=== PATIENT | female | born 1975 ===

== ENCOUNTER 2018-04-08 05:51 | Day surgery (SDC) | payer BC ==
[~2018-04-08] VITALS: Ht 160 cm; Wt 68.9 kg
[2018-04-08] VITALS (12 sets, daily range): BP systolic 95–132; BP diastolic 52–80
[2018-04-08] MEDS ORDERED: PRENATAL 19 TA1 EAC1 PO (06:33)
[2018-04-08] MEDS ORDERED: VYVANSE30 MG ORAL (06:33)
[2018-04-08] MEDS ORDERED: CYMBALTA60 MG ORAL (06:33)
[2018-04-08] MEDS ORDERED: SYNTHROID137 MCG ORAL (06:33)
[2018-04-08] MEDS ORDERED: cefOXitin Sod 2 GM in D5W 110 ML IVPB ONE (07:00)
[2018-04-08] MEDS ORDERED: cefOXitin 1gm Inj ONE (07:06)
[2018-04-08] MEDS ORDERED: Succinylcholine 20mg/ml 10ml vial ONE (07:07)
[2018-04-08] MEDS ORDERED: Zemuron 50mg/5ml Inj IV ONE (07:07)
[2018-04-08] MEDS ORDERED: Ketorolac 30mg Inj ONE (07:08)
[2018-04-08] MEDS ORDERED: Midazolam 2mg/2ml Inj ONE (07:08)
[2018-04-08] MEDS ORDERED: Propofol 200mg/20ml IV ONE ×2 (07:08→08:08)
[2018-04-08] MEDS ORDERED: fentaNYL 100 mcg/2 mL IV ONE (07:08)
[2018-04-08] MEDS ORDERED: Lidocaine 1% MPF 10mg/ml 5ml ONE (07:08)
[2018-04-08] MEDS ORDERED: Ropivacaine 5mg/ml Vial 30ml INJ ONE (07:26)
[2018-04-08] MEDS ORDERED: ProvayBlue 5mg/ml 10ml amp INJ ONE (07:30)
[2018-04-08] MEDS ORDERED: LR 1000ml ONE (07:30)
[2018-04-08] MEDS ORDERED: NS Irrig 1000ml ONE (07:30)
[2018-04-08] MEDS ORDERED: Neostigmine 1mg/ml 10ml Inj ONE (07:30)
[2018-04-08] MEDS ORDERED: Sterile Water For Irrig 2000ml IRRIG ONE (07:30)
[2018-04-08] MEDS ORDERED: NS Irrig 2000ml IRRIG ONE (07:30)
--- NOTE | 2018-04-08 07:42 | Anethesia Preoperative Eval ---
Anesthesia Pre-op PMH/ROS General Date of Evaluation: Apr 08, 2018 Time of Evaluation: 07:41 Anesthesiologist: Mandeep ASA Score: ASA 2 Mallampati Score Class I : Soft palate, uvula, fauces, pillars visible Class II: Soft palate, uvula, fauces visible Class III: Soft palate, base of uvula visible Class IV: Only hard plate visible Mallampati Classification: Class II Surgeon: Corie Diagnosis: Abdominal pain Surgical Procedure: Laparoscopy D&C Hysteroscopy Anesthesia History: none Family History: no anesthesia problems Allergies: Coded Allergies: No Known Allergies (Unverified , 04/08/18) Past Medical History Cardiovascular: Denies: HTN, CAD, IA, valve dz, arrhythmia, other Pulmonary: Denies: asthma, COPD, JESUS, other Gastrointestinal/Genitourinary: Reports: GERD; Denies: CRI, ESRD, other Neurologic/Psychiatric: 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 Exam Physician Exam Last Vital Signs Date Time Temp Pulse Resp B/P (MAP) Pulse Ox O2 Delivery O2 Flow Rate FiO2 04/08/18 06:39 98.5 81 18 119/80 (93) 98 98.5 04/08/18 06:30 Room Air Constitutional: NAD Neurologic: CN 2-12 intact Cardiovascular: RRR, no M/R/G Respiratory: CTA Gastrointestinal: S/NT/ND Airway Exam Mallampati Score: Class II MO: full Neck: flexible ROM: full Teeth: intact Dentures: no upper, no lower Anesthesia Pre-op A/P Labs see chart Urine Test Test 04/08/18 06:15 Urine HCG, Qualitative Negative (NEGATIVE) Studies Pre-op Studies: EKG - NSR Risk Assessment & Plan Assessment: ASA 2 Plan: GA with ETT PONV prevention Status Change Before Surgery: No Pre-Antibiotics Drug: Cefoxitin 1 gr. Given Within 1 Hr of Incision: Yes Time Given: 07:56 Vignesh Kaufman MD Apr 08, 2018 07:42
--- NOTE | 2018-04-08 07:47 | Pre-Procedure Note/Attestation ---
Pre-Procedure Note/Attestation Complete Prior to Procedure Planned Procedure: not applicable Procedure Narrative: Co2 laser pelviscopy, hysteroscopy dilation and curettage Indications for Procedure Pre-Operative Diagnosis: severe dysmenorrhea ovarian cyst Attestation I attest that I discussed the nature of the procedure; its benefits; risks and complications; and alternatives (and the risks and benefits of such alternatives ), prior to the procedure, with the patient (or the patient's legal retention representative). I attest that, if there was a reasonable possibility of needing a blood transfusion, the patient (or the patient's legal retention representative) was given the [place] Department [employer] standardized written summary, pursuant to the [place] Blood Safety Act ([place] Health and Safety Code # 1645, as amended). I attest that I re-evaluated the patient just prior to the surgery and that there has been no change in the patient's H&P, except as documented below: ROSEANNE FLEMING Apr 08, 2018 07:47
[2018-04-08] MEDS ORDERED: Metoclopramide 10mg/2ml Inj IVP PRN ×2 (08:00→08:30)
[2018-04-08] MEDS ORDERED: DiphenhydrAMINE 50mg/ml Inj IVP PRN ×2 (08:00→08:30)
[2018-04-08] MEDS ORDERED: D5 1/2NS 1,000 ML IV SCH (08:00)
[2018-04-08] MEDS ORDERED: Norco 5mg/325mg tab ORAL PRN (08:00)
[2018-04-08] MEDS ORDERED: HYDROmorphone 1mg/ml Carpuject SUBQ PRN (08:00)
[2018-04-08] MEDS ORDERED: Tylenol #3 tab (300mg/30mg) ORAL PRN (08:00)
[2018-04-08] MEDS ORDERED: Bupivacaine 0.5% Inj 30 ml vial INJ ONE (08:15)
[2018-04-08] MEDS ORDERED: LR 1000ml 1,000 ML IVLG SCH (08:29)
[2018-04-08] MEDS ORDERED: fentaNYL 100 mcg/2 mL IV PRN ×2 (08:30→09:15)
[2018-04-08] MEDS ORDERED: Ketorolac 30mg Inj IV PRN (08:30)
[2018-04-08] MEDS ORDERED: Midazolam 2mg/2ml Inj IVP PRN (08:30)
[2018-04-08] MEDS ORDERED: Meperidine 50mg/ml Inj(FOR RIGORS ONLY) IV PRN (08:30)
[2018-04-08] MEDS ORDERED: Glycopyrrolate 0.2mg/ml 1ml Vial ONE (08:35)
[2018-04-08] MEDS ORDERED: Morphine Sulfate 10mg/ml Inj ONE (09:06)
[2018-04-08] MEDS ORDERED: Sodium Chloride 10ml vial INJ ONE (09:07)
--- NOTE | 2018-04-08 09:35 | Brief Operative Note ---
Immediate Post Operative Note Operative Note Pre-op Diagnosis: severe dysmenorrhea ovarian cyst Procedure: [id number] pelviscopy/ right ovarian cystectomy/ extensive ablation of endometriosis/ hysteroscopy Post-op Diagnosis: same as pre-op Findings: consistent w/pre-op dx studies Surgeon: inderjit Occupational Nurse: roberta Anesthesiologist: constantine Anesthesia: general Specimen: yes Complications: none Condition: stable Fluids: crystalloid Estimated Blood Loss: minimal Drains: none Implant(s) used?: No ROSEANNE FLEMING Apr 08, 2018 09:35
--- NOTE | 2018-04-08 09:54 | Immediate Post-Op Evaluation ---
Immediate Post-Op Evalulation Immediate Post-Op Evalulation Procedure: D&C Hysteroscopy, Laparoscopic treatment of endometriosis Date of Evaluation: Apr 08, 2018 Time of Evaluation: 09:53 IV Fluids: 1200 Blood Products: none Estimated Blood Loss: 50 Urinary Output: 150 Blood Pressure Systolic: 109 Blood Pressure Diastolic: 67 Pulse Rate: 81 Respiratory Rate: 20 O2 Sat by Pulse Oximetry: 99 Temperature (Fahrenheit): 97.6 Pain Score (1-10): 2 Nausea: No Vomiting: No Complications none Patient Status: reacts, patent, extubated, none Hydration Status: adequate Vignesh Kaufman MD Apr 08, 2018 09:54
--- NOTE | 2018-04-08 10:45 | 48 Hour Post Anesthesia Eval ---
Post Anesthesia Evaluation Procedure: D&C Hysteroscopy, Laparoscopic treatment of endometriosis Date of Evaluation: Apr 08, 2018 Time of Evaluation: 10:44 Blood Pressure Systolic: 98 0: 56 Pulse Rate: 72 Respiratory Rate: 20 Temperature (Fahrenheit): 97.6 O2 Sat by Pulse Oximetry: 98 Airway: patent Nausea: No Vomiting: No Pain Intensity: 3 Hydration Status: adequate Cardiopulmonary Status: stable Mental Status/LOC: patient returned to baseline Follow-up Care/Observations: n/a Post-Anesthesia Complications: none Follow-up care needed: ready to discharge Vignesh Kaufman MD Apr 08, 2018 10:45
--- NOTE | 2018-04-08 17:00 | Operative Note - Dictated ---
DATE OF OPERATION: 04/08/2018 PREOPERATIVE DIAGNOSES: 1. Severe dysmenorrhea. 2. Right ovarian cyst. 3. Dyspareunia. PROCEDURES: 1. CO2 laser pelviscopy. 2. Extensive ablation of endometriosis. 3. Right ovarian cystectomy. 4. Chromopertubation. 5. Hysteroscopy. SURGEON: Stephanie Fontenot M.D. PROGRAM CLERK: Travis Tinajero ANESTHESIOLOGIST: Vignesh Kaufman M.D. PROCEDURE IN DETAIL: After ensuring informed consent including risks of the surgery, the patient was taken to the operating room, where general anesthesia was induced. The patient was sterilely prepped and draped. Weighted speculum was placed in the vagina and cervix was dilated to 7 Hegar dilator. A hysteroscope was placed inside the uterine cavity. Uterine cavity was evaluated and appeared to be normal. ECC was performed and endometrial cavity was sampled gently. Then, ZUMI-type manipulator was placed inside the uterine cavity. Attention was turned to the abdomen where a small incision was made inside the umbilicus after infiltration with half Marcaine. Next, Veress needle was placed inside the peritoneal cavity and intraperitoneal placement was confirmed with low opening pressures. Next, pneumoperitoneum was created with approximately 4 liters of CO2 gas. Next, a 10 mm trocar was placed inside the umbilicus and intraperitoneal placement was confirmed with the camera. Pelvis was explored. There was a right ovarian cyst, an extensive endometriosis in the cul-de-sac, and bilateral ovarian fossas. Next, CO2 laser was placed on the intraumbilical port. Please note that, the suprapubic and left lateral 5 mm trocars were placed under direct visualization after infiltration with half Marcaine. Next, ovary was opened and the capsule of the cyst was removed. Excellent hemostasis was assured using bipolar cautery. Next, right ureter was identified. The right pelvic sidewall was infiltrated with half Marcaine to lift the peritoneum away from the ureter and multiple foci of endometriosis on the right pelvic sidewall were ablated. Next, a similar procedure was performed on the left side where using Veress needle, peritoneum was infiltrated with a dilute solution of Marcaine and endometriotic implants were lasered off. They were on the left uterosacral, behind the uterus on the left side and in the left ovarian fossa as well. There was also an adhesion on the right side between the bladder and the right round ligament, which was also lasered off. Next, chromopertubation was performed with dilute solution of methylene blue and bilateral spill from both tubes was noted. At the end of the procedure, excellent hemostasis was assured. The pelvis was copiously irrigated. All trocars were removed under direct visualization. The midline trocar site fascia was closed with #0 Vicryl. There was some bleeding observed from the midline trocar, which was closed with #0 Vicryl as well to stop the bleeding and Steri-Strips were placed over all the sites. At the end of the procedure, all instrument and lap counts were correct x2. The patient was taken to the recovery area, extubated, and in stable condition. Stephanie Fontenot M.D. DR: RITIKA JOB#: [id number] CC:
== END 2018-04-08 12:00 | disposition home or self-care (01) ==
LOC: SUR 05:51
DX: N80.9 Endometriosis, unspecified (principal); N94.6 Dysmenorrhea, unspecified; N83.201 Unspecified ovarian cyst, right side; N94.10 Unspecified dyspareunia; K21.9 Gastro-esophageal reflux disease without esophagitis; E03.9 Hypothyroidism, unspecified; G89.29 Other chronic pain; Z90.49 Acquired absence of other specified parts of digestive tract
CPT/HCPCS: 58555; 58662; 81025; J0330; J0694; J1885; J2175; J2250; J2270; J2405; J2704; J2710; J3010; J3490; J7120; Q9968; 94003; 94150